=== PATIENT | female | born 1935 | race Caucasian/White ===

== ENCOUNTER 2023-01-28 07:33 | Emergency (ER) | payer OTHER ==
[~2023-01-28] VITALS: Ht 149.9 cm; Wt 44.9 kg
== END 2023-01-28 10:48 | disposition home or self-care (01) ==
LOC: ER 07:33
DX: M79.18 Myalgia, other site (principal)

== ENCOUNTER → 2023-02-13 | Emergency (ER) | payer OTHER ==
[~2023-02-13] VITALS: Ht 157.5 cm; Wt 44.5 kg
== END | disposition left against medical advice (07) ==
LOC: ER 14:35
DX: Z53.21 Procedure and treatment not carried out due to patient leaving prior to being seen by health care provider (principal)